=== PATIENT | female | born 1940 | race African-American/Black ===

== ENCOUNTER 2017-05-07 10:06 | Outpatient (CLI) | payer MEDICARE, MEDICAID ==
--- NOTE | 2017-05-07 17:54 | Diagnostic Imaging Report ---
Indication: Bilateral flank pain x1 month Technique: US ABD Complete Comparison: None Findings: Limited evaluation of the midline abdomen due to overlying scar and bowel gas. Pancreas not well seen. Liver is normal in size with the right lobe measuring 14.7 cm in length. Hepatic echogenicity is homogeneous. No focal hepatic mass lesion is appreciated sonographically. The gallbladder is not visualized and may be surgically absent. There is no intrahepatic biliary ductal dilatation. The common bile duct measures between 6 and 10 mm. This may be post surgical in etiology. No discrete choledocholithiasis seen. The left kidney measures 9.6 cm in length. The right kidney measures 9.9 cm in length. There is no hydronephrosis or sonographically appreciable renal stones bilaterally. Spleen is normal in size. Imaged portions of the IVC and abdominal aorta are normal in caliber. There is no ascites. IMPRESSION: Gallbladder are not visualized. Probable prior cholecystectomy. Dilatation of the common bile duct up to 10 mm is noted, likely postoperative in etiology if there is indeed history of cholecystectomy. No discrete choledocholithiasis seen. No definite intrahepatic biliary ductal dilatation. Obstructing lesion or mass is not entirely excluded. Prior exam would be helpful to assess for stability. CT or MRI may be obtained as clinically indicated for further evaluation. Pancreas not well visualized due to overlying bowel gas. No renal tract stones or hydronephrosis bilaterally.
--- NOTE | 2017-05-07 18:13 | Diagnostic Imaging Report ---
Indication: Pain Technique: Transabdominal ultrasound was performed. Patient unable to tolerate/declined endovaginal exam Findings: Per nuclear technologist notes the patient was unable to tolerate or declined the endovaginal exam. The uterus measures 8.8 x 4.8 x 3.1 cm. The atrium measures up to 9.8 mm in thickness transabdominally. The ovaries are not definitively identified transabdominally. The bladder is unremarkable in appearance. No free pelvic fluid is identified. IMPRESSION: Per nuclear technologist notes the patient was unable to tolerate or declined the endovaginal exam. Abnormal endometrial thickness of 9.8 mm (normal postmenopausal endometrial thickness should be less than 5 mm). Transvaginal exam would provide a more reliable assessment of endometrial thickness and is recommended. Alternatively, endometrial thickness is well assessed on pelvic MRI. If there is history of abnormal postmenopausal bleeding then referral to a estate agent for potential endometrial sampling is strongly recommended. Gynecologic evaluation may still be warranted even if there is no such history of bleeding, given abnormal endometrial thickness.
== END 2017-05-07 12:06 | disposition home or self-care (01) ==
LOC: ULS 10:06
DX: R10.9 Unspecified abdominal pain (principal)
CPT/HCPCS: 76700; 76856

== ENCOUNTER 2017-05-18 08:35 | Outpatient (CLI) | payer MEDICARE, MEDICAID ==
[2017-05-18 09:15] LABS: BLOOD UREA NITROGEN 18 mg/dL (7-18)
--- NOTE | 2017-05-18 13:41 | Diagnostic Imaging Report ---
Indication: Reason For Exam: ABD PAIN Technique: Axial single shot fast spin echo breath hold, coronal single shot fast spin-echo breath hold, axial T2 FRFSE fat-saturated, 2-D thick slab MRCP, axial 2-D FIESTA fat-saturated, axial 3-D dual echo breath-hold, precontrast axial and postcontrast axial and coronal water weighted axial LAVA FLEX images of the abdomen Comparison: Reference made to abdomen ultrasound 05/07/2017 Findings: The gallbladder is not visualized, is presumed to be surgically absent. Small foci of susceptibility artifacts in the kirstin hepatis most likely represent surgical clips. There is dilatation of the extrahepatic bile ducts, common bile duct measuring up to 12 mm in diameter. There is mild central intrahepatic biliary ductal dilatation, as well. No intraluminal filling defects are demonstrated. No evidence of pancreatic head mass. No definite ampullary lesion The liver and pancreas are unremarkable. The spleen demonstrates an upper pole cyst. Right kidney demonstrates a lower pole cyst. No retroperitoneal mass or adenopathy. No definite enteric abnormality other than colonic diverticulosis. Impression: Dilated extrahepatic and central intrahepatic bile ducts. Suspect on the basis of a senescent changes, as no intraluminal filling defects or definite downstream obstructive lesion is identified Absent gallbladder, presumed postsurgical Splenic and right renal cysts Colonic diverticulosis
--- NOTE | 2017-05-19 13:34 | Diagnostic Imaging Report ---
Indication: Lower abdominal pain, abnormal uterus on recent ultrasound Technique: Sagittal and axial T2 FRFSE, axial and coronal T2 FRFSE fat-saturated, axial T 1 fast spin echo, axial water-weighted LAVA flex, oblique axial T2, pre and postcontrast axial T1 fat saturated, coronal postcontrast T1 fat saturated images of the pelvis Comparison: Reference made to pelvic ultrasound 05/07/2017 Findings: Uterus is normal in size. The endometrium measures up to 11 mm thick. It demonstrates mostly high T2 signal. However, there is some heterogeneous signal abnormality within the endometrium with areas of intermediate signal demonstrated. This is most evident in the lower uterine segment and endocervical canal, and best appreciated on the coronal T2 fat saturated images (series 9). The junctional zone is not well demonstrated. However, subtle T2 hyperintensities are seen within the myometrium near the endometrium. No discrete myometrial mass. Cervical nabothian cysts are incidentally noted. The ovaries are not well demonstrated but grossly normal. No adnexal mass is demonstrated. No free fluid There is equivocally mild bladder wall thickening, possibly artifact of under distention. No pelvic mass or adenopathy. There are colonic diverticula. There is an L5 vertebral body hemangioma incidentally noted Impression: 11 mm thick endometrium, not normal in a postmenopausal female. In addition, heterogeneous signal within the endometrium could indicate a polyp or neoplasm. Gynecological evaluation and possible tissue sampling should be considered Punctate T2 hyperintensities within the submucosal myometrium. No definite junctional zone abnormality. Findings could represent adenomyosis changes but are nonspecific Negative for adnexal mass Colonic diverticulosis. No evidence of diverticulitis. Equivocal mild bladder wall thickening. Likely an artifact due to underdistention; if real cystitis not excludable Incidental findings as noted, including cervical nabothian cysts, L5 vertebral body hemangioma Findings discussed by phone with Dr. Kelly
== END 2017-05-18 10:35 | disposition home or self-care (01) ==
LOC: MRI 08:35
DX: R10.9 Unspecified abdominal pain (principal); N28.1 Cyst of kidney, acquired; K57.30 Diverticulosis of large intestine without perforation or abscess without bleeding
CPT/HCPCS: 36415; 72197; 74183; 82565; 84520; A9585

== ENCOUNTER → 2017-06-11 | Outpatient (CLI) | payer MEDICARE, MEDICAID ==
--- NOTE | 2017-06-11 15:53 | Diagnostic Imaging Report ---
Indication: Cough Technique: 2 views of the chest Comparison: 07/23/2014 Findings: The lungs and pleural spaces are clear. There is a large retrocardiac hiatal hernia again demonstrated. The heart is mildly enlarged. Right hilar vascular prominence is again noted. There is evidence of prior median sternotomy. Impression: No acute process Cardiomegaly Hiatal hernia
== END | disposition home or self-care (01) ==
LOC: RAD 12:44
DX: R05 Cough (principal); I10 Essential (primary) hypertension; K44.9 Diaphragmatic hernia without obstruction or gangrene; I51.7 Cardiomegaly
CPT/HCPCS: 71046

== ENCOUNTER 2018-01-31 11:04 | Outpatient (CLI) | payer MEDICARE, MEDICAID ==
--- NOTE | 2018-01-31 12:08 | Diagnostic Imaging Report ---
Indications: Hip and pelvis pain Findings: 2 views of both hips and AP pelvis were obtained. Bones are osteopenic. No fracture or malalignment identified. There are moderate degenerative changes at the L5-S1 level with facet hypertrophy and sclerosis noted. Mild narrowing of both hip joints also demonstrated. IMPRESSION: No acute injury appreciated. Osteoporosis Lower lumbar degenerative disease
== END 2018-01-31 13:04 | disposition home or self-care (01) ==
LOC: RAD 11:04
DX: M25.559 Pain in unspecified hip (principal); R10.2 Pelvic and perineal pain; M51.36 Other intervertebral disc degeneration, lumbar region; M81.0 Age-related osteoporosis without current pathological fracture
CPT/HCPCS: 73521

== ENCOUNTER → 2018-11-29 | Outpatient (CLI) | payer MEDICARE, MEDICAID ==
--- NOTE | 2018-11-29 16:14 | Diagnostic Imaging Report ---
Indication: Reason For Exam: COUGH Technique: Single AP view of the chest. Comparison: Chest radiograph dated 06/11/2017 Findings: The cardiomediastinal silhouette is unchanged, with stable cardiomegaly. There is mild interstitial edema, which has worsened since prior examination. Trace bilateral pleural effusions. Bibasilar subsegmental atelectasis. No pneumothorax. Osseous structures demonstrate no acute abnormality. There are multilevel discogenic degenerative changes of the visualized spine. Preserved alignment of median sternotomy wires. IMPRESSION: Interval increase in interstitial edema, now mild to moderate.
== END | disposition home or self-care (01) ==
LOC: RAD 15:28
DX: Z01.818 Encounter for other preprocedural examination (principal); I10 Essential (primary) hypertension
CPT/HCPCS: 71046

== ENCOUNTER 2019-01-19 12:00 | Outpatient (CLI) | payer MEDICARE, MEDICAID ==
--- NOTE | 2019-01-19 12:53 | Diagnostic Imaging Report ---
Indications: Left hip pain Findings: Two views of the left hip were obtained. Bones are osteopenic. No definite fracture is identified. Narrowing of both hip joints and sacroiliac joints, degenerative changes of the visualized lower lumbar spine and generalized osteopenia are demonstrated. IMPRESSION: No acute fracture identified
== END 2019-01-19 14:00 | disposition home or self-care (01) ==
LOC: RAD 12:00
DX: M25.552 Pain in left hip (principal); M85.88 Other specified disorders of bone density and structure, other site
CPT/HCPCS: 73502